=== PATIENT | male | born 1965 | race Caucasian/White ===

== ENCOUNTER 2018-01-04 09:05 | Observation (INO) | payer OTHER ==
--- NOTE | 2018-01-04 09:23 | EDM.PDOC ---
ED HPI GENERAL MEDICAL PROBLEM - General Chief Complaint: Abdominal Pain Stated Complaint: LT SIDE HURTS Time Seen by Provider: 01/04/18 09:21 - History of Present Illness INITIAL COMMENTS - FREE TEXT/NARRATIVE: HISTORY AND PHYSICAL: History of present illness: Patient 52-year-old white male sensory concern of acute left sided abdominal pain this started yesterday he's had some tactile fever he denies vomiting diarrhea urinary symptoms denies trauma or other concern he had no prior surgeries denies history of known diverticular disease Review of systems: As per history of present illness and below otherwise all systems reviewed and negative. Past medical history: As per history of present illness and as reviewed below otherwise noncontributory. Surgical history: As per history of present illness and as reviewed below otherwise noncontributory. Social history: No reported history of drug or alcohol abuse. Family history: As per history of present illness and as reviewed below otherwise noncontributory. Physical exam: HEENT: Atraumatic, normocephalic, pupils reactive, negative for conjunctival pallor or scleral icterus, mucous membranes moist, throat clear, neck supple, nontender, trachea midline. Lungs: Clear to auscultation, breath sounds equal bilaterally, chest nontender. Heart: S1S2, regular, negative for clicks, rubs, or JVD. Abdomen: Soft, nondistended, left-sided tenderness with mild guarding this is nonlocalized is no rebound Negative for masses or hepatosplenomegaly. Negative for costovertebral tenderness. Pelvis: Stable nontender. Genitourinary: Deferred. Rectal: Deferred. Extremities: Atraumatic, negative for cords or calf pain. Neurovascular unremarkable. Neuro: Awake, alert, oriented. Cranial nerves II through XII unremarkable. Cerebellum unremarkable. Motor and sensory unremarkable throughout. Exam nonfocal. Diagnostics: CBC CMP PT/INR lipase UA urine culture and sensitivity CT abdomen and pelvis Therapeutics: Saline 1 L bolus the water 1 mg IV when necessary Zofran 4 mg IV when necessary Impression: #1 acute left-sided abdominal pain Definitive disposition and diagnosis as appropriate pending reevaluation and review of above. Left Lower Abdominal Pain Score (Numeric/FACES): 7 - Related Data Allergies Allergy/AdvReac Type Severity Reaction Status Date / Time No Known Allergies Allergy Verified 01/04/18 09:12 Home Meds: Home Meds . [No Known Home Meds] 01/04/18 [History] Past Medical History - Past Health History Medical/Surgical History: Denies Medical/Surgical History - Infectious Disease History Infectious Disease History: Reports: Chicken Pox Social & Family History - Family History Family Medical History: Noncontributory - Tobacco Use Smoking Status *Q: Never Smoker - Recreational Drug Use Recreational Drug Use: No ED ROS GENERAL - Review of Systems Review Of Systems: ROS reveals no pertinent complaints other than HPI. ED EXAM, GENERAL - Physical Exam Exam: See Below (See dictation) Course - Vital Signs Last Recorded V/S: Last Vital Signs Temp 37.2 C 01/04/18 09:08 Pulse 126 H 01/04/18 09:08 Resp 18 01/04/18 09:08 BP 135/93 H 01/04/18 09:08 Pulse Ox 94 L 01/04/18 09:08 - Orders/Labs/Meds Orders: Active Orders 24 hr Category Date Time Status UA W/MICROSCOPIC [URIN] Stat Lab 01/04/18 09:23 Ordered Sodium Chloride 0.9% [Normal Saline] 1,000 ml Med 01/04/18 09:24 Active IV STAT cefOXitin [Mefoxin] 1 gm Med 01/04/18 10:11 Ordered Sodium Chloride 0.9% [Normal Saline] 50 ml IV ONETIME metroNIDAZOLE/Normal Saline [Flagyl 500 MG in NS 100 ML Med 01/04/18 10:12 Ordered ] 500 mg Premix Bag 1 bag IV ONETIME Medication Orders Sodium Chloride (Normal Saline) 1,000 mls @ 999 mls/hr IV STAT ONE Stop: 01/04/18 10:24 Last Admin: 01/04/18 09:35 Dose: 999 mls/hr Cefoxitin Sodium 1 gm/ Sodium (Chloride) 50 mls @ 100 mls/hr IV ONETIME ONE Stop: 01/04/18 10:40 Metronidazole 500 mg/ Premix 100 mls @ 100 mls/hr IV ONETIME ONE Stop: 01/04/18 11:11 Labs: Laboratory Tests 01/04/18 01/04/18 01/04/18 Range/Units 09:24 09:24 09:24 WBC 13.53 H (4.0-11.0) K/uL RBC 5.19 (4.50-5.90) M/uL Hgb 16.1 (13.0-17.0) g/dL Hct 48.0 (38.0-50.0) % MCV 92.5 (80.0-98.0) fL MCH 31.0 (27.0-32.0) pg MCHC 33.5 (31.0-37.0) g/dL RDW Std Deviation 46.7 (28.0-62.0) fl RDW Coeff of Michelle 14 (11.0-15.0) % Plt Count 207 (150-400) K/uL MPV 9.70 (7.40-12.00) fL Neut % (Auto) 74.2 (48.0-80.0) % Lymph % (Auto) 13.5 L (16.0-40.0) % Emanuel % (Auto) 11.6 (0.0-15.0) % Eos % (Auto) 0.6 (0.0-7.0) % Baso % (Auto) 0.1 (0.0-1.5) % Neut # (Auto) 10.1 H (1.4-5.7) K/uL Lymph # (Auto) 1.8 (0.6-2.4) K/uL Emanuel # (Auto) 1.6 H (0.0-0.8) K/uL Eos # (Auto) 0.1 (0.0-0.7) K/uL Baso # (Auto) 0.0 (0.0-0.1) K/uL Nucleated RBC % 0.0 /100WBC Nucleated RBCs # 0 K/uL INR 1.02 Sodium 140 (136-148) mmol/L Potassium 4.1 (3.5-5.1) mmol/L Chloride 105 (98-107) mmol/L Carbon Dioxide 25.0 (21.0-32.0) mmol/L BUN 15 (7.0-18.0) mg/dL Creatinine 1.0 (0.8-1.3) mg/dL Est Cr Clr Drug Dosing 81.71 mL/min Estimated GFR (MDRD) > 60.0 ml/min Glucose 88 (74-106) mg/dL Calcium 9.2 (8.5-10.1) mg/dL Total Bilirubin 0.6 (0.2-1.0) mg/dL AST 15 (15-37) IU/L ALT 33 (14-63) IU/L Alkaline Phosphatase 87 (46-116) U/L Total Protein 6.7 (6.4-8.2) g/dL Albumin 3.7 (3.4-5.0) g/dL Globulin 3.0 (2.0-3.5) g/dL Albumin/Globulin Ratio 1.2 L (1.3-2.8) Lipase 112 (73-393) U/L Meds: Medications Generic Name Dose Route Start Last Admin Trade Name Freq PRN Reason Stop Dose Admin Sodium Chloride 1,000 mls @ 999 mls/hr 01/04/18 09:24 01/04/18 09:35 Normal Saline IV 01/04/18 10:24 999 mls/hr STAT ONE Administration Cefoxitin Sodium 1 gm/ Sodium 50 mls @ 100 mls/hr 01/04/18 10:11 Chloride IV 01/04/18 10:40 ONETIME ONE Metronidazole 500 mg/ Premix 100 mls @ 100 mls/hr 01/04/18 10:12 IV 01/04/18 11:11 ONETIME ONE Departure - Departure Time of Disposition: 10:12 Disposition: Refer to Observation Condition: Good Clinical Impression: Abdominal pain, Diverticulitis - Discharge Information Referrals: PCP,None [Primary Care Provider] - Forms: ED Department Discharge - My Orders Last 24 Hours: My Active Orders 01/04/18 09:23 UA W/MICROSCOPIC [URIN] Stat 01/04/18 09:24 Sodium Chloride 0.9% [Normal Saline] 1,000 ml IV STAT 01/04/18 10:11 cefOXitin [Mefoxin] 1 gm Sodium Chloride 0.9% [Normal Saline] 50 ml IV ONETIME 01/04/18 10:12 metroNIDAZOLE/Normal Saline [Flagyl 500 MG in NS 100 ML] 500 mg Premix Bag 1 bag IV ONETIME - Assessment/Plan Last 24 Hours: My Active Orders 01/04/18 09:23 UA W/MICROSCOPIC [URIN] Stat 01/04/18 09:24 Sodium Chloride 0.9% [Normal Saline] 1,000 ml IV STAT 01/04/18 10:11 cefOXitin [Mefoxin] 1 gm Sodium Chloride 0.9% [Normal Saline] 50 ml IV ONETIME 01/04/18 10:12 metroNIDAZOLE/Normal Saline [Flagyl 500 MG in NS 100 ML] 500 mg Premix Bag 1 bag IV ONETIME
[2018-01-04] MEDS ORDERED: Sodium Chloride 0.9% 1,000 ML IV ONE (09:24)
[2018-01-04 10:05] LABS: CHLORIDE,CL 105 mmol/L (98-107); SODIUM,NA 140 mmol/L (136-148)
--- NOTE | 2018-01-04 10:05 | CT ---
CT of the abdomen and pelvis without contrast. HISTORY: Pain TECHNIQUE: Axial CT images were obtained of the abdomen and pelvis without contrast. Coronal and sagi ttal reconstructions obtained. FINDINGS: The lung bases are clear, no pleural effusion. There are a few tiny subpleural nodules identified 4 m m. The liver, spleen, adrenal glands, and pancreas appear unremarkable for noncontrast examination. The gallbladder appears normal. There is no bulky retroperitoneal lymphadenopathy. No abdominal ascites. Minimal fat-containing umbilical hernia. There are no calcifications noted within the kidneys or along the courses of the ureters bilaterally. The large and small bowel are normal in caliber without evidence of obstruction. The appendix appears normal. Diverticulosis is noted without focal pericolonic inflammation within the distal descending colon. There is no bulky pelvic lymphadenopathy. No free fluid. No free air. The urinary bladder appe ars normal. Prostate is mildly prominent. The visualized osseous structures appear normal. IMPRESSION: 1. Distal descending colon diverticulitis. 2. A few tiny pulmonary nodules within the lung bases. If the patient has known risk factors consider follow-up imaging in one year.
[2018-01-04] MEDS ORDERED: metroNIDAZOLE/Normal Saline 500 MG in Premix Bag 1 BAG IV ONE (10:12)
[2018-01-04] MEDS ORDERED: cefOXitin 1 GM in Premix Bag 1 BAG IV ONE (10:25)
[2018-01-04] MEDS ORDERED: Ondansetron 4 MG/2 ML SDV IVPUSH ONE (10:30)
[2018-01-04] MEDS ORDERED: HYDROmorphone 1 MG/ML Syringe IVPUSH ONE (10:30)
[2018-01-04] MEDS ORDERED: Ondansetron 4 MG/2 ML SDV IVPUSH PRN (10:54)
[2018-01-04] MEDS ORDERED: Albuterol/Ipratropium 3.0-0.5 MG/3 ML Neb Soln NEB PRN (10:54)
--- NOTE | 2018-01-04 11:10 | PCM.HP ---
H&P History of Present Illness - General Date of Service: 01/04/18 Admit Problem/Dx: Admission Diagnosis/Problem Admission Diagnosis/Problem Diverticulitis Source of Information: Patient History Limitations: Reports: No Limitations - History of Present Illness Initial Comments - Free Text/Narative: 52-year-old male is being admitted with diverticulitis. Patient developed left lower quadrant abdominal pain last evening that worsened overnight to the point where he presented to the ER. He Did not have any nausea or vomiting associated with abdominal pain and denied any diarrhea or constipation. He also denies blood in the stool. No prior abdominal surgeries. No trauma to the abdomen. He has had a slight fever. He did have a colonoscopy 7 years ago where one polyp was found and removed. He was told that he needed a follow-up colonoscopy in 10 years. Patient currently denies any headaches, dizziness, chest pain, palpitations, shortness of breath, wheezing, cough. ER course: Patient was given cefoxitin and Flagyl in the ER. He is also given a dose of 1 mg Dilaudid along with Zofran and an IV fluid bolus. He was slightly tachycardic at 126 bpm but his vital signs are otherwise unremarkable. White count is elevated at 13.5. His lipase and CMP is unremarkable. Abdomen/pelvis CT showed left-sided diverticulitis and some pulmonary nodules in the lower lung santoyo that need to be followed up in one year with repeat imaging. Left Lower Abdominal Pain Score (Numeric/FACES): 7 - Related Data Allergies/Adverse Reactions: Allergies Allergy/AdvReac Type Severity Reaction Status Date / Time No Known Allergies Allergy Verified 01/04/18 09:12 Home Medications: Home Meds . [No Known Home Meds] 01/04/18 [History] Past Medical History - Past Health History Medical/Surgical History: Denies Medical/Surgical History - Infectious Disease History Infectious Disease History: Reports: Chicken Pox Social & Family History - Family History Family Medical History: Noncontributory - Tobacco Use Smoking Status *Q: Never Smoker - Recreational Drug Use Recreational Drug Use: No H&P Review of Systems - Review of Systems: Review Of Systems: See Below General: Reports: No Symptoms HEENT: Reports: No Symptoms Pulmonary: Reports: No Symptoms Cardiovascular: Reports: No Symptoms Gastrointestinal: Reports: Abdominal Pain, Decreased Appetite. Denies: Constipation, Diarrhea, Hematochezia, Melena Genitourinary: Reports: No Symptoms Musculoskeletal: Reports: No Symptoms Skin: Reports: No Symptoms Psychiatric: Reports: No Symptoms Neurological: Reports: No Symptoms Hematologic/Lymphatic: Reports: No Symptoms Immunologic: Reports: No Symptoms Exam - Exam Exam: See Below - Vital Signs Vital Signs: Last Vital Signs Temp 98.4 F 01/04/18 10:53 Pulse 87 01/04/18 10:53 Resp 18 01/04/18 10:53 BP 118/78 01/04/18 10:53 Pulse Ox 97 01/04/18 10:53 Weight: 227 lb 8.273 oz - Exam General: Alert, Oriented, Cooperative HEENT: Conjunctiva Clear, EOMI, Hearing Intact, Mucosa Moist & [place] Lungs: Clear to Auscultation, Normal Respiratory Effort Cardiovascular: Regular Rhythm, Tachycardia GI/Abdominal Exam: Normal Bowel Sounds, Soft, No Organomegaly, No Distention, No Abnormal Bruit, No Mass, Pelvis Stable, Tender (Left lower quadrant with palpation) Extremities: Normal Inspection, Normal Range of Motion, Non-Tender, No Pedal Edema, Normal Capillary Refill Peripheral Pulses: 2+: Radial (L), Radial (R), Posterior Tibial (L), Posterior Tibial (R) Skin: Warm, Dry, Intact Neuro Extensive - Mental Status: Alert, Oriented x3, Normal Mood/Affect, Normal Cognition Psychiatric: Alert, Normal Affect, Normal Mood - Patient Data Lab Results Last 24 hrs: Laboratory Results - last 24 hr 01/04/18 01/04/18 01/04/18 Range/Units 09:24 09:24 09:24 WBC 13.53 H (4.0-11.0) K/uL RBC 5.19 (4.50-5.90) M/uL Hgb 16.1 (13.0-17.0) g/dL Hct 48.0 (38.0-50.0) % MCV 92.5 (80.0-98.0) fL MCH 31.0 (27.0-32.0) pg MCHC 33.5 (31.0-37.0) g/dL RDW Std Deviation 46.7 (28.0-62.0) fl RDW Coeff of Michelle 14 (11.0-15.0) % Plt Count 207 (150-400) K/uL MPV 9.70 (7.40-12.00) fL Neut % (Auto) 74.2 (48.0-80.0) % Lymph % (Auto) 13.5 L (16.0-40.0) % [place]ough % (Auto) 11.6 (0.0-15.0) % Eos % (Auto) 0.6 (0.0-7.0) % Baso % (Auto) 0.1 (0.0-1.5) % Neut # (Auto) 10.1 H (1.4-5.7) K/uL Lymph # (Auto) 1.8 (0.6-2.4) K/uL [place]ough # (Auto) 1.6 H (0.0-0.8) K/uL Eos # (Auto) 0.1 (0.0-0.7) K/uL Baso # (Auto) 0.0 (0.0-0.1) K/uL Nucleated RBC % 0.0 /100WBC Nucleated RBCs # 0 K/uL INR 1.02 Sodium 140 (136-148) mmol/L Potassium 4.1 (3.5-5.1) mmol/L Chloride 105 (98-107) mmol/L Carbon Dioxide 25.0 (21.0-32.0) mmol/L BUN 15 (7.0-18.0) mg/dL Creatinine 1.0 (0.8-1.3) mg/dL Est Cr Clr Drug Dosing 81.71 mL/min Estimated GFR (MDRD) > 60.0 ml/min Glucose 88 (74-106) mg/dL Calcium 9.2 (8.5-10.1) mg/dL Total Bilirubin 0.6 (0.2-1.0) mg/dL AST 15 (15-37) IU/L ALT 33 (14-63) IU/L Alkaline Phosphatase 87 (46-116) U/L Total Protein 6.7 (6.4-8.2) g/dL Albumin 3.7 (3.4-5.0) g/dL Globulin 3.0 (2.0-3.5) g/dL Albumin/Globulin Ratio 1.2 L (1.3-2.8) Lipase 112 (73-393) U/L Urine Color Urine Appearance Urine pH (5.0-8.0) Ur Specific [place] (1.001-1.035) Urine Protein (NEGATIVE) mg/dL Urine Glucose (UA) (NEGATIVE) mg/dL Urine Ketones (NEGATIVE) mg/dL Urine Occult Blood (NEGATIVE) Urine Nitrite (NEGATIVE) Urine Bilirubin (NEGATIVE) Urine Urobilinogen (<2.0) EU/dL Ur Leukocyte Esterase (NEGATIVE) Urine RBC (0-2/HPF) Urine WBC (0-5/HPF) Ur Epithelial Cells (NONE-FEW) Amorphous Sediment (NEGATIVE) Urine Bacteria (NEGATIVE) Urine Mucus (NONE-MOD) 01/04/18 Range/Units 10:29 WBC (4.0-11.0) K/uL RBC (4.50-5.90) M/uL Hgb (13.0-17.0) g/dL Hct (38.0-50.0) % MCV (80.0-98.0) fL MCH (27.0-32.0) pg MCHC (31.0-37.0) g/dL RDW Std Deviation (28.0-62.0) fl RDW Coeff of Michelle (11.0-15.0) % Plt Count (150-400) K/uL MPV (7.40-12.00) fL Neut % (Auto) (48.0-80.0) % Lymph % (Auto) (16.0-40.0) % [place] % (Auto) (0.0-15.0) % Eos % (Auto) (0.0-7.0) % Baso % (Auto) (0.0-1.5) % Neut # (Auto) (1.4-5.7) K/uL Lymph # (Auto) (0.6-2.4) K/uL [place]ough # (Auto) (0.0-0.8) K/uL Eos # (Auto) (0.0-0.7) K/uL Baso # (Auto) (0.0-0.1) K/uL Nucleated RBC % /100WBC Nucleated RBCs # K/uL INR Sodium (136-148) mmol/L Potassium (3.5-5.1) mmol/L Chloride (98-107) mmol/L Carbon Dioxide (21.0-32.0) mmol/L BUN (7.0-18.0) mg/dL Creatinine (0.8-1.3) mg/dL Est Cr Clr Drug Dosing mL/min Estimated GFR (MDRD) ml/min Glucose (74-106) mg/dL Calcium (8.5-10.1) mg/dL Total Bilirubin (0.2-1.0) mg/dL AST (15-37) IU/L ALT (14-63) IU/L Alkaline Phosphatase (46-116) U/L Total Protein (6.4-8.2) g/dL Albumin (3.4-5.0) g/dL Globulin (2.0-3.5) g/dL Albumin/Globulin Ratio (1.3-2.8) Lipase (73-393) U/L Urine Color YELLOW Urine Appearance CLEAR Urine pH 6.0 (5.0-8.0) Ur Specific [place] 1.010 (1.001-1.035) Urine Protein NEGATIVE (NEGATIVE) mg/dL Urine Glucose (UA) NEGATIVE (NEGATIVE) mg/dL Urine Ketones 15 H (NEGATIVE) mg/dL Urine Occult Blood TRACE-INTACT (NEGATIVE) Urine Nitrite NEGATIVE (NEGATIVE) Urine Bilirubin NEGATIVE (NEGATIVE) Urine Urobilinogen 0.2 (<2.0) EU/dL Ur Leukocyte Esterase NEGATIVE (NEGATIVE) Urine RBC 0-2 (0-2/HPF) Urine WBC 0-1 (0-5/HPF) Ur Epithelial Cells RARE (NONE-FEW) Amorphous Sediment NOT SEEN (NEGATIVE) Urine Bacteria NOT SEEN (NEGATIVE) Urine Mucus NOT SEEN (NONE-MOD) Result Diagrams: 01/04/18 09:24 01/04/18 09:24 - Problem List (1) Diverticulitis SNOMED Code(s): 811934111 ICD Code: K57.92 - DVTRCLI OF INTEST, PART UNSP, W/O PERF OR ABSCESS W/O BLEED Status: Acute Current Visit: Yes Problem List Initiated/Reviewed/Updated: Yes Orders Last 24hrs: Active Orders 24 hr Category Date Time Status Patient Status [ADT] Stat ADT 01/04/18 10:14 Active Height and Weight [RC] DAILY Care 01/04/18 10:54 Ordered Intake and Output [RC] QSHIFT Care 01/04/18 10:55 Ordered Notify Provider Vital Signs [RC] ASDIRECTED Care 01/04/18 10:55 Ordered Oxygen Therapy [RC] PRN Care 01/04/18 10:54 Ordered Pulse Oximetry [RC] PRN Care 01/04/18 10:55 Ordered RT Aerosol Therapy [RC] ASDIRECTED Care 01/04/18 10:58 Ordered Up With Assistance [RC] ASDIRECTED Care 01/04/18 10:54 Ordered VTE/DVT Education [RC] PER UNIT ROUTINE Care 01/04/18 10:54 Ordered Vital Signs [RC] Q4H Care 01/04/18 10:54 Ordered Nothing per Oral Now Diet [DIET] Diet 01/04/18 Breakfast Ordered BASIC METABOLIC PANEL,BMP [CHEM] AM Lab 01/05/18 05:11 Ordered BASIC METABOLIC PANEL,BMP [CHEM] AM Lab 01/06/18 05:11 Ordered CBC WITH AUTO DIFF [HEME] AM Lab 01/05/18 05:11 Ordered CBC WITH AUTO DIFF [HEME] AM Lab 01/06/18 05:11 Ordered UA W/MICROSCOPIC [URIN] Stat Lab 01/04/18 10:29 Ordered Acetaminophen [Tylenol] Med 01/04/18 10:54 Ordered 650 mg PO Q4H PRN Albuterol/Ipratropium [DuoNeb 3.0-0.5 MG/3 ML] Med 01/04/18 10:54 Ordered 3 ml NEB Q4HRRT PRN Ciprofloxacin in D5W [Cipro in D5W 400 MG/200 ML] 400 Med 01/04/18 11:15 Ordered mg Premix Bag 1 bag IV Q12H HYDROmorphone [Dilaudid] Med 01/04/18 10:54 Ordered 1 mg IVPUSH Q3H PRN Heparin Sodium Med 01/04/18 11:00 Ordered 5,000 units SUBCUT Q12H Ondansetron [Zofran] Med 01/04/18 10:54 Ordered 4 mg IVPUSH Q4H PRN Sodium Chloride 0.9% @ 125 MLS/HR (1000ml) Med 01/04/18 11:00 Ordered Sodium Chloride 0.9% [Normal Saline] 1,000 ml IV ASDIRECTED metroNIDAZOLE/Normal Saline [Flagyl 500 MG in NS 100 ML Med 01/04/18 10:12 Active ] 500 mg Premix Bag 1 bag IV ONETIME metroNIDAZOLE/Normal Saline [Flagyl 500 MG in NS 100 ML Med 01/04/18 16:30 Ordered ] 500 mg Premix Bag 1 bag IV QID Sequential Compression Device [OM.PC] Per Unit Routine Oth 01/04/18 10:55 Ordered Resuscitation Status Routine Resus Stat 01/04/18 10:54 Ordered Medication Orders Acetaminophen (Tylenol) 650 mg PO Q4H PRN PRN Reason: Pain (Mild 1-3)/fever Albuterol/Ipratropium (Duoneb 3.0-0.5 Mg/3 Ml) 3 ml NEB Q4HRRT PRN PRN Reason: Shortness Of Breath/wheezing Heparin Sodium (Porcine) (Heparin Sodium) 5,000 units SUBCUT Q12H RODNEY Hydromorphone HCl (Dilaudid) 1 mg IVPUSH Q3H PRN PRN Reason: Pain (severe 7-10) Metronidazole 500 mg/ Premix 100 mls @ 100 mls/hr IV ONETIME ONE Stop: 01/04/18 11:11 Last Admin: 01/04/18 10:24 Dose: 100 mls/hr Sodium Chloride (Normal Saline) 1,000 mls @ 125 mls/hr IV ASDIRECTED RODNEY Metronidazole 500 mg/ Premix 100 mls @ 100 mls/hr IV QID RODNEY Ciprofloxacin/Dextrose 400 mg/ (Premix) 200 mls @ 200 mls/hr IV Q12H RODNEY Ondansetron HCl (Zofran) 4 mg IVPUSH Q4H PRN PRN Reason: Nausea Assessment/Plan Comment:: 52-year-old male with diverticulitis. #1. Diverticulitis: -Patient will be started on IV Cipro and Flagyl. -He'll be made nothing by mouth and then we can advance his diet as tolerated. -IV Dilaudid PRN for pain relief. IV Zofran PRN for nausea and vomiting. #2. Tachycardia: -NS @ 125cc/hr. can d/c if tolerating oral intake and VS are stable. Patient will need a f/u Colonoscopy approx 6 weeks after resolution of diverticulitis. DVT Prophylaxis: SCD's and Heparin Disposition: 1-2 days pending improvement.
[2018-01-04] MEDS ORDERED: Ciprofloxacin in D5W 400 MG in Premix Bag 1 BAG IV SCH ×2 (11:15)
[2018-01-04] MEDS: Heparin Sodium 5,000 Units/ML Vial SUBCUT SCH ×2 (11:49→22:12)
[2018-01-04] MEDS: Ciprofloxacin in D5W 400 MG in Premix Bag 1 BAG IV SCH ×4 (12:22→23:10)
[2018-01-04] MEDS: Sodium Chloride 0.9% 1,000 ML IV SCH ×2 (12:42→20:43)
[2018-01-04] MEDS: HYDROmorphone 1 MG/ML Syringe IVPUSH PRN ×2 (13:41→22:12)
[2018-01-04] MEDS: metroNIDAZOLE/Normal Saline 500 MG in Premix Bag 1 BAG IV SCH ×2 (15:51→22:11)
[2018-01-04] MEDS ORDERED: metroNIDAZOLE/Normal Saline 500 MG in Premix Bag 1 BAG IV SCH (16:30)
[2018-01-04] MEDS: Acetaminophen 325 MG Tab PO PRN (20:03)
[2018-01-05] MEDS: metroNIDAZOLE/Normal Saline 500 MG in Premix Bag 1 BAG IV SCH ×2 (04:29→09:33)
[2018-01-05] MEDS: HYDROmorphone 1 MG/ML Syringe IVPUSH PRN (04:40)
[2018-01-05 05:49] LABS: CHLORIDE,CL 107 mmol/L (98-107); SODIUM,NA 141 mmol/L (136-148)
[2018-01-05] MEDS: Sodium Chloride 0.9% 1,000 ML IV SCH (06:58)
[2018-01-05] MEDS: Acetaminophen 325 MG Tab PO PRN (09:33)
--- NOTE | 2018-01-05 10:48 | PCM.DCSUM1 ---
Discharge Summary - Hospital Course Free Text/Narrative:: Admission diagnosis: #1. Diverticulitis #2. Pulmonary nodules Discharge diagnoses: #1. Diverticulitis #2. Pulmonary nodules 52-year-old male that was admitted with distal descending colon diverticulitis. Initial white blood cell count was 13.5. Patient was started on IV ciprofloxacin and Flagyl and his white blood cell count improved to 9.4 at the time of discharge. CMP was unremarkable throughout his admission. Patient was treated with IV Dilaudid for pain management and given IV fluids. Patient's pain improved during admission and he was able to tolerate clear liquids at the time of discharge. Abdomen/pelvis CT confirmed the diagnosis of diverticulitis and also showed a few tiny pulmonary nodules in the lung bases. A follow-up chest CT is recommended in one year. At the time of discharge, the patient was tolerating oral intake, voiding appropriately, ambulating without assistance and doing much better from admission. - Discharge Data Discharge Date: 01/05/18 Discharge Disposition: Home, Self-Care 01 Condition: Stable - Discharge Diagnosis/Problem(s) (1) Diverticulitis SNOMED Code(s): 505748354 ICD Code: K57.92 - DVTRCLI OF INTEST, PART UNSP, W/O PERF OR ABSCESS W/O BLEED Status: Acute Current Visit: Yes - Patient Instructions Diet: Usual Diet as Tolerated Diet, Other: advance diet slowly and as tolerated Activity: As Tolerated Driving: Do Not Drive Showering/Bathing: May Shower Notify Provider of: Fever, Increased Pain, Nausea and/or Vomiting - Discharge Plan Prescriptions/Med Rec: Ciprofloxacin HCl [Cipro] 500 mg PO BID #26 tablet metroNIDAZOLE [Flagyl] 500 mg PO Q8H #39 tab Home Medications: Home Meds Ciprofloxacin HCl [Cipro] 500 mg PO BID #26 tablet 01/05/18 [Rx] metroNIDAZOLE [Flagyl] 500 mg PO Q8H #39 tab 01/05/18 [Rx] Patient Handouts: Diverticulitis Forms: ED Department Discharge Referrals: [facility] [Outside] Nazia Abdullahi NP [Ordering Only Provider] - 01/10/18 11:00 am - Discharge Summary/Plan Comment DC Time >30 min.: No Discharge Summary/Plan Comment: Admission diagnosis: #1. Diverticulitis #2. Pulmonary nodules Discharge diagnoses: #1. Diverticulitis #2. Pulmonary nodules 52-year-old male that was admitted with distal descending colon diverticulitis. Initial white blood cell count was 13.5. Patient was started on IV ciprofloxacin and Flagyl and his white blood cell count improved to 9.4 at the time of discharge. CMP was unremarkable throughout his admission. Patient was treated with IV Dilaudid for pain management and given IV fluids. Patient's pain improved during admission and he was able to tolerate clear liquids at the time of discharge. Abdomen/pelvis CT confirmed the diagnosis of diverticulitis and also showed a few tiny pulmonary nodules in the lung bases. A follow-up chest CT is recommended in one year. At the time of discharge, the patient was tolerating oral intake, voiding appropriately, ambulating without assistance and doing much better from admission. Discharge plan: -Prescription given for ciprofloxacin 500 mg twice a day, 26 tabs, 0 refills. -Prescription given for Flagyl 500 mg 3 times a day, 39 tabs, 0 refills. -Recommend a follow-up colonoscopy in 6 weeks after resolution of symptoms. -Patient can use Tylenol and/or ibuprofen for pain relief. -Recommend that the patient advance his diet slowly and as tolerated. -Patient will follow-up with [facility] P[facility] on [facility]. - Patient Data Vitals - Most Recent: Last Vital Signs Temp 97.5 F 01/05/18 08:00 Pulse 84 01/05/18 08:00 Resp 17 01/05/18 08:00 BP 110/76 01/05/18 08:00 Pulse Ox 97 01/05/18 08:00 Weight - Most Recent: 222 lb 7.143 oz I&O - Last 24 hours: Intake & Output 01/04/18 01/05/18 01/05/18 22:59 06:59 14:59 Intake Total 1616 2680 600 Output Total 900 3000 Balance 716 -320 600 Lab Results - Last 24 hrs: Laboratory Results - last 24 hr 01/04/18 01/05/18 01/05/18 Range/Units 10:29 04:44 04:44 WBC 9.41 (4.0-11.0) K/uL RBC 4.56 (4.50-5.90) M/uL Hgb 13.9 (13.0-17.0) g/dL Hct 43.0 (38.0-50.0) % MCV 94.3 (80.0-98.0) fL MCH 30.5 (27.0-32.0) pg MCHC 32.3 (31.0-37.0) g/dL RDW Std Deviation 48.5 (28.0-62.0) fl RDW Coeff of Michelle 14 (11.0-15.0) % Plt Count 181 (150-400) K/uL MPV 9.70 (7.40-12.00) fL Neut % (Auto) 64.2 (48.0-80.0) % Lymph % (Auto) 21.6 (16.0-40.0) % [place] % (Auto) 13.2 (0.0-15.0) % Eos % (Auto) 0.9 (0.0-7.0) % Baso % (Auto) 0.1 (0.0-1.5) % Neut # (Auto) 6.1 H (1.4-5.7) K/uL Lymph # (Auto) 2.0 (0.6-2.4) K/uL [place] # (Auto) 1.2 H (0.0-0.8) K/uL Eos # (Auto) 0.1 (0.0-0.7) K/uL Baso # (Auto) 0.0 (0.0-0.1) K/uL Nucleated RBC % 0.0 /100WBC Nucleated RBCs # 0 K/uL Sodium 141 (136-148) mmol/L Potassium 4.2 (3.5-5.1) mmol/L Chloride 107 (98-107) mmol/L Carbon Dioxide 29.1 (21.0-32.0) mmol/L BUN 9 (7.0-18.0) mg/dL Creatinine 1.0 (0.8-1.3) mg/dL Est Cr Clr Drug Dosing 81.71 mL/min Estimated GFR (MDRD) > 60.0 ml/min Glucose 96 (74-106) mg/dL Calcium 8.6 (8.5-10.1) mg/dL Urine Color YELLOW Urine Appearance CLEAR Urine pH 6.0 (5.0-8.0) Ur Specific [place] 1.010 (1.001-1.035) Urine Protein NEGATIVE (NEGATIVE) mg/dL Urine Glucose (UA) NEGATIVE (NEGATIVE) mg/dL Urine Ketones 15 H (NEGATIVE) mg/dL Urine Occult Blood TRACE-INTACT (NEGATIVE) Urine Nitrite NEGATIVE (NEGATIVE) Urine Bilirubin NEGATIVE (NEGATIVE) Urine Urobilinogen 0.2 (<2.0) EU/dL Ur Leukocyte Esterase NEGATIVE (NEGATIVE) Urine RBC 0-2 (0-2/HPF) Urine WBC 0-1 (0-5/HPF) Ur Epithelial Cells RARE (NONE-FEW) Amorphous Sediment NOT SEEN (NEGATIVE) Urine Bacteria NOT SEEN (NEGATIVE) Urine Mucus NOT SEEN (NONE-MOD) Med Orders - Current: Current Medications Acetaminophen (Tylenol) 650 mg PO Q4H PRN PRN Reason: Pain (Mild 1-3)/fever Last Admin: 01/05/18 09:33 Dose: 650 mg Albuterol/Ipratropium (Duoneb 3.0-0.5 Mg/3 Ml) 3 ml NEB Q4HRRT PRN PRN Reason: Shortness Of Breath/wheezing Heparin Sodium (Porcine) (Heparin Sodium) 5,000 units SUBCUT Q12H [facility] Last Admin: 01/04/18 22:12 Dose: 5,000 units Hydromorphone HCl (Dilaudid) 1 mg IVPUSH Q3H PRN PRN Reason: Pain (severe 7-10) Last Admin: 01/05/18 04:40 Dose: 1 mg Ciprofloxacin/Dextrose 400 mg/ (Premix) 200 mls @ 200 mls/hr IV Q12H [facility] Last Admin: 01/04/18 23:10 Dose: 200 mls/hr Metronidazole 500 mg/ Premix 100 mls @ 100 mls/hr IV Q6H [facility] Last Admin: 01/05/18 09:33 Dose: 100 mls/hr Ondansetron HCl (Zofran) 4 mg IVPUSH Q4H PRN PRN Reason: Nausea Discontinued Medications Hydromorphone HCl (Dilaudid) 1 mg IVPUSH ONETIME ONE Stop: 01/04/18 10:31 Last Admin: 01/04/18 10:40 Dose: 1 mg Sodium Chloride (Normal Saline) 1,000 mls @ 999 mls/hr IV STAT ONE Stop: 01/04/18 10:24 Last Infusion: 01/04/18 10:27 Dose: 200 mls/hr Metronidazole 500 mg/ Premix 100 mls @ 100 mls/hr IV ONETIME ONE Stop: 01/04/18 11:11 Last Admin: 01/04/18 10:24 Dose: 100 mls/hr Cefoxitin Sodium 1 gm/ Premix 50 mls @ 100 mls/hr IV ONETIME ONE Stop: 01/04/18 10:54 Last Admin: 01/04/18 11:45 Dose: 100 mls/hr Sodium Chloride (Normal Saline) 1,000 mls @ 125 mls/hr IV ASDIRECTED [facility] Last Admin: 01/05/18 06:58 Dose: 125 mls/hr Metronidazole 500 mg/ Premix 100 mls @ 100 mls/hr IV QID [facility] Ciprofloxacin/Dextrose 400 mg/ (Premix) 200 mls @ 200 mls/hr IV Q12H [facility] Last Admin: 01/04/18 11:21 Dose: Not Given Ondansetron HCl (Zofran) 4 mg IVPUSH ONETIME ONE Stop: 01/04/18 10:31 Last Admin: 01/04/18 10:35 Dose: 4 mg
== END 2018-01-05 11:00 | disposition home or self-care (01) ==
LOC: MW.ED 09:05 → MW.ICU 10:44
PROVIDERS: ADMIT Internal Medicine; ATTEND Internal Medicine
DX: K57.32 Diverticulitis of large intestine without perforation or abscess without bleeding (principal); R91.1 Solitary pulmonary nodule; R00.0 Tachycardia, unspecified
CPT/HCPCS: 36415; 74176; 80048; 80053; 81001; 83690; 85025; 85610; 96361; 96365; 96366; 96367; 96372; 96375; 96376; 99285; A9270; G0378; J0694; J0744; J1170; J1644; J2405; J7040

== ENCOUNTER 2019-04-22 12:23 | Emergency (ER) | payer OTHER ==
[2019-04-22] MEDS ORDERED: Diphtheria,Pertussis(Acell),Tetanus Vaccine 0.5 ML Syringe IM ONE (12:36)
--- NOTE | 2019-04-22 12:37 | EDM.PDOC ---
ED HPI GENERAL MEDICAL PROBLEM - General Chief Complaint: Upper Extremity Injury/Pain Stated Complaint: LEFT HAND MIDDLE FINGER LACERATION Time Seen by Provider: 04/22/19 12:37 Source of Information: Reports: Patient - History of Present Illness INITIAL COMMENTS - FREE TEXT/NARRATIVE: HISTORY AND PHYSICAL: History of present illness: [Patient presents with the distal tip of the flash on his third digit left hand sliced off fat pad remains intact is working with a table saw Fever nausea vomiting chills sweats] Review of systems: As per history of present illness and below otherwise all systems reviewed and negative. Past medical history: As per history of present illness and as reviewed below otherwise noncontributory. Surgical history: As per history of present illness and as reviewed below otherwise noncontributory. Social history: No reported history of drug or alcohol abuse. Family history: As per history of present illness and as reviewed below otherwise noncontributory. Physical exam: HEENT: Atraumatic, normocephalic, pupils reactive, negative for conjunctival pallor or scleral icterus, mucous membranes moist, throat clear, neck supple, nontender, trachea midline. Lungs: Clear to auscultation, breath sounds equal bilaterally, chest nontender. Heart: S1S2, regular, negative for clicks, rubs, or JVD. Abdomen: Soft, nondistended, nontender. Negative for masses or hepatosplenomegaly. Negative for costovertebral tenderness. Pelvis: Stable nontender. Genitourinary: Deferred. Rectal: Deferred. Extremities: Atraumatic, negative for cords or calf pain. Neurovascular unremarkable. Neuro: Awake, alert, oriented. Cranial nerves II through XII unremarkable. Cerebellum unremarkable. Motor and sensory unremarkable throughout. Exam nonfocal. Diagnostics: [] Therapeutics: [T dap Lidocaine-patient refused lidocaine Keflex Silver nitrate Bacitracin Telfa tube dressing Splint for protection and comfort Wound cleansed and explored Standard wound care instruction Follow-up with hand specialist at [place] -7-10 days call for appointment ] Impression: [ avulsion of tissue/laceration possible open fracture , P rest to be small chip fracture on the distal phalanx ] Definitive disposition and diagnosis as appropriate pending reevaluation and review of above. L middle finger Pain Score (Numeric/FACES): 10 - Related Data Allergies Allergy/AdvReac Type Severity Reaction Status Date / Time No Known Allergies Allergy Verified 04/22/19 12:34 Home Meds: Home Meds . [No Known Home Meds] 04/22/19 [History] Past Medical History - Past Health History Medical/Surgical History: Denies Medical/Surgical History HEENT History: Reports: Hard of Hearing Gastrointestinal History: Reports: None Genitourinary History: Reports: Other (See Below) Other Genitourinary History: Hospitalized for kidney infections x2 Musculoskeletal History: Reports: Fracture - Infectious Disease History Infectious Disease History: Reports: Chicken Pox - Past Surgical History HEENT Surgical History: Reports: None GI Surgical History: Reports: Colonoscopy Musculoskeletal Surgical History: Reports: Arthroscopic Knee Other Musculoskeletal Surgeries/Procedures:: Meniscus tear repair right knee 2014 Social & Family History - Family History Family Medical History: Noncontributory Endocrine/Metabolic: Reports: Diabetes, type II Oncologic: Reports: Thyroid - Caffeine Use Caffeine Use: Reports: Coffee Review of Systems - Review of Systems Review Of Systems: See Below ED EXAM, GENERAL - Physical Exam Exam: See Below Course - Vital Signs Last Recorded V/S: Last Vital Signs Temp 98.5 F 04/22/19 12:32 Pulse 111 H 04/22/19 12:32 Resp 16 04/22/19 12:32 BP 151/106 H 04/22/19 12:40 Pulse Ox 92 L 04/22/19 12:32 - Orders/Labs/Meds Orders: Active Orders 24 hr Category Date Time Status Vaccines to be Administered [RC] PER UNIT ROUTINE Care 04/22/19 12:37 Active Meds: Medications Discontinued Medications Generic Name Dose Route Start Last Admin Trade Name Frebonnie PRN Reason Stop Dose Admin Diphtheria/Tetanus/Acell Pertussis 0.5 ml 04/22/19 12:36 04/22/19 12:51 Adacel IM 04/22/19 12:37 0.5 ml .ONCE ONE Administration Lidocaine HCl 5 ml 04/22/19 12:36 04/22/19 12:50 Xylocaine-Mpf 1% INJECT 04/22/19 12:37 5 ml ONETIME ONE Administration Departure - Departure Time of Disposition: 14:04 Disposition: Home, Self-Care 01 Condition: Good Clinical Impression: Laceration - Discharge Information Referrals: PCP,None [Primary Care Provider] - Forms: ED Department Discharge Additional Instructions: Standard wound care instruction Medication as prescribed Return if symptoms persist or worsen Follow-up with hand spec and/or orthopedic clinic within one week Orthopedist clinic is available here in town number below [facility] Professional Building [address] [place] [address], [address] [place] [address] my orthopedic Hand specialist is available through 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 The following information is given to patients seen in the emergency department who are being discharged to home. This information is to outline your options for follow-up care. We provide all patients seen in our emergency department with a follow-up referral. The need for follow-up, as well as the timing and circumstances, are variable depending upon the specifics of your emergency department visit. If you don't have a primary care physician on staff, we will provide you with a referral. We always advise you to contact your personal physician following an emergency department visit to inform them of the circumstance of the visit and for follow-up with them and/or the need for any referrals to a consulting specialist. The emergency department will also refer you to a specialist when appropriate. This referral assures that you have the opportunity for follow-up care with a specialist. All of these measure are taken in an effort to provide you with optimal care, which includes your follow-up. Under all circumstances we always encourage you to contact your private physician who remains a resource for coordinating your care. When calling for follow-up care, please make the office aware that this follow-up is from your recent emergency room visit. If for any reason you are refused follow-up, please contact the [facility] emergency department at and asked to speak to the emergency department charge nurse. - My Orders Last 24 Hours: My Active Orders 04/22/19 12:37 Vaccines to be Administered [RC] PER UNIT ROUTINE - Assessment/Plan Last 24 Hours: My Active Orders 04/22/19 12:37 Vaccines to be Administered [RC] PER UNIT ROUTINE
--- NOTE | 2019-04-22 13:09 | CR ---
Indication: Smashed finger in lab pack chemist Technique: Three views of the left 3rd finger were obtained. Comparison: None Findings: On the lateral view, a questionable fracture of the anterior base of the middle phalanx of the left 3rd finger is identified. No other fractures are identified. Impression: Questionable fracture of the anterior base of the middle phalanx of the left 3rd finger. Dictated by Madeline Goldstein MD @ Apr 22 2019 1:06PM Signed by Dr. Madeline Goldstein @ Apr 22 2019 1:07PM
[2019-04-22] MEDS ORDERED: Bacitracin Oint 1 GM U/D Packet TOP ONE (14:16)
[2019-04-22] MEDS ORDERED: Bacitracin Oint 1 GM U/D Packet ONE (14:17)
== END 2019-04-22 14:30 | disposition home or self-care (01) ==
LOC: MW.ED 12:23
DX: S62.633A Displaced fracture of distal phalanx of left middle finger, initial encounter for closed fracture (principal); S61.213A Laceration without foreign body of left middle finger without damage to nail, initial encounter; Z23 Encounter for immunization; W31.2XXA Contact with powered woodworking and forming machines, initial encounter
CPT/HCPCS: 73140-26-F2; 73140-F2; 90471; 90715; 99283; 99283-25; J2001